=== PATIENT | female | born 2000 | race African-American/Black ===

== ENCOUNTER 2022-10-12 20:57 | Observation (INO) | payer MEDICAID ==
[~2022-10-12] VITALS: Ht 157.5 cm; Wt 121.1 kg
[2022-10-12] MEDS ORDERED: BISACODYL 10MG SUPP PR NR (22:45)
[2022-10-13] MEDS ORDERED: PREN1TAB78 PO (01:45)
== END 2022-10-13 02:00 | disposition home or self-care (01) ==
LOC: 8 EST LDRP 20:57
PROVIDERS: ADMIT Obstetrics & Gynecology; ATTEND Obstetrics & Gynecology
DX: O62.9 Abnormality of forces of labor, unspecified (principal); O26.893 Other specified pregnancy related conditions, third trimester; K59.00 Constipation, unspecified; R10.9 Unspecified abdominal pain; Z3A.38 38 weeks gestation of pregnancy
CPT/HCPCS: 59025; 99281; G0378

== ENCOUNTER 2022-10-29 08:36 | Emergency (ER) | payer MEDICAID ==
[~2022-10-29] VITALS: Ht 157.5 cm; Wt 121.0 kg
[~2022-10-29 08:36] MED LIST: PREN1TAB78 PO
[2022-10-29 08:43] VITALS: BP 132/84
[2022-10-29] MEDS ORDERED: ACETAMINOPHEN 325MG TABLET PO ONE (09:30)
[2022-10-29] MEDS ORDERED: TOPUD MT (11:27)
== END 2022-10-29 11:56 | disposition home or self-care (01) ==
LOC: ER 08:36
DX: O98.513 Other viral diseases complicating pregnancy, third trimester (principal); Z20.822 Contact with and (suspected) exposure to COVID-19; Z3A.39 39 weeks gestation of pregnancy
CPT/HCPCS: 87070; 87426; 87430; 87804; 99283; C9803

== ENCOUNTER 2022-10-31 05:22 | Inpatient (IN) | payer MEDICAID ==
[~2022-10-31] VITALS: Ht 165.1 cm; Wt 121.1 kg
[~2022-10-31 05:22] MED LIST changes: +TOPUD MT
[2022-10-31] MEDS ORDERED: NALOXONE HCL 0.4 MG/ML 1ML VIAL IM PRN (06:15)
[2022-10-31] MEDS ORDERED: MISOPROSTOL 100MCG TABLET VG SCH (06:15)
[2022-10-31] MEDS ORDERED: CARBOPROST TROMETHAMINE 250 MCG/ML AMPUL IM PRN (06:15)
[2022-10-31] MEDS ORDERED: OXYTOCIN 30 UNITS/500ML NS PMX 500 ML IV SCH (06:15)
[2022-10-31] MEDS ORDERED: BUTORPHANOL TARTRATE 2 MG/ML VIAL IV PRN (06:15)
[2022-10-31] MEDS ORDERED: METHYLERGONOVINE MALEATE 0.2 MG/ML IM PRN (06:15)
[2022-10-31] MEDS ORDERED: LIDOCAINE HCL 1% 20ML VIAL (Pyxis) INJ INFIL SCH (06:15)
[2022-10-31 06:47] LABS: BASOPHILS % 0.4 % (0.0-2.0); HEMATOCRIT. 35.1 % (36.0-48.0); HEMOGLOBIN. 11.1 g/dL (12.0-16.0); LYMPHOCYTES % 23.4 % (20.0-50.0); MEAN CORPUSCULAR VOLUME 78.9 fL (81.0-99.0); MEAN PLATELET VOLUME 8.6 fl (7.4-10.4); MONOCYTES % 12.9 % (2.0-8.0); NEUTROPHILS % 60.3 % (40.0-76.0); PLATELET 172 x1000/uL (130-400); RED BLOOD CELL COUNT 4.46 mill/uL (4.2-5.4)
[2022-10-31] MEDS ORDERED: PENICILLIN G POTASSIUM 5 MMU in DEXT 5% WATER 100 ML IV SCH (07:30)
[2022-10-31] MEDS: MISOPROSTOL 100MCG TABLET VG PRN ×3 (07:59→16:34)
[2022-10-31] MEDS: LACTATED RINGERS 1,000 ML IV SCH (08:00)
[2022-10-31 09:47] LABS: INR 0.9; PROTHROMBIN TIME 9.7 sec (9.6-11.0)
[2022-10-31 10:31] LABS: CLARITY URINE CLEAR (CLEAR); COLOR URINE DARK YELLOW (YELLOW); KETONES URINE TRACE (NEGATIVE); LEUKOCYTE ESTERASE URINE NEGATIVE (NEGATIVE); NITRITE URINE NEGATIVE (NEGATIVE); OCCULT BLOOD URINE NEGATIVE (NEGATIVE); PROTEIN URINE 1+ (NEGATIVE); SPECIFIC GRAVITY URINE 1.033 (1.005-1.030)
[2022-10-31 11:59] LABS: *AMPHETAMINES SCREEN URINE NEGATIVE (NEGATIVE); *BARBITURATES SCREEN URINE NEGATIVE (NEGATIVE); *BENZODIAZEPINES SCREEN URINE NEGATIVE (NEGATIVE); *COCAINE SCREEN URINE NEGATIVE (NEGATIVE); CANNABINOID URINE SCREEN NEGATIVE (NEGATIVE); METHADONE URINE SCREEN NEGATIVE (NEGATIVE); OPIATES URINE SCREEN NEGATIVE (NEGATIVE); PHENCYCLIDINE URINE SCREEN NEGATIVE (NEGATIVE)
[2022-10-31] MEDS ORDERED: PENICILLIN G POTASSIUM 2.5 MMU in DEXTROSE 5% WATER 50 ML IV SCH (12:00)
[2022-10-31] MEDS ORDERED: LANOLIN OINT 7GM TUBE TOP PRN (17:09)
[2022-10-31 17:48] LABS: HEPATITIS B SURFACE ANTIGEN NEGATIVE
[2022-10-31] MEDS: OXYTOCIN 30 UNITS/500ML NS PMX 500 ML IV SCH (20:42)
[2022-10-31] MEDS ORDERED: MINERAL OIL 30ML BOTTLE TOP NR (21:30)
[2022-10-31] MEDS ORDERED: ROPIVACAINE HCL/PF EPIDURAL 200 ML EPI SCH (21:45)
[2022-10-31 22:36] LABS: CHLORIDE 110 mEq/L (98-107)
[2022-10-31] MEDS ORDERED: ROPIVACAINE HCL/PF EPIDURAL 200 ML EPI ONE (22:53)
[2022-10-31] MEDS ORDERED: FENTANYL CITRATE/PF 50MCG/ML 2ML VIAL ONE (22:54)
[2022-10-31] MEDS ORDERED: MORPHINE SULFATE/PF 1MG/ML 10ML AMP ONE (23:56)
[2022-10-31] MEDS ORDERED: OXYTOCIN 10 UNITS/ML 1ML ONE (23:56)
[2022-10-31] MEDS ORDERED: CEFAZOLIN SODIUM 1000MG/VIAL ONE (23:56)
[2022-11-01] MEDS ORDERED: DIPHENHYDRAMINE 50MG/ML VIAL ONE (00:18)
[2022-11-01] MEDS ORDERED: KETOROLAC 60MG/2ML VIAL IM ONE (00:28)
[2022-11-01] MEDS ORDERED: BUTORPHANOL TARTRATE 2 MG/ML VIAL IV PRN (00:45)
[2022-11-01] MEDS ORDERED: DIPHENHYDRAMINE 50MG/ML VIAL IV PRN (00:45)
[2022-11-01] MEDS ORDERED: HYDROCODONE/ACETAMINOPHEN 5/325MG TABLET PO PRN (02:00)
[2022-11-01] MEDS ORDERED: OXYTOCIN 30 UNITS/500ML NS PMX 500 ML IV SCH (02:00)
[2022-11-01] MEDS ORDERED: LANOLIN OINT 7GM TUBE TOP PRN (02:00)
[2022-11-01] MEDS ORDERED: RHO(D) IMMUNE GLOBULIN 300 MCG/SYR IM PRN (02:00)
[2022-11-01] MEDS ORDERED: ONDANSETRON HCL 4MG/2ML INJ IV PRN (02:00)
[2022-11-01 04:00] VITALS: BP 107/65
[2022-11-01] MEDS: OXYTOCIN 30 UNITS/500ML NS PMX 500 ML IV SCH (05:04)
[2022-11-01 05:15] VITALS: BP 110/59
[2022-11-01] MEDS: KETOROLAC 30MG/ML VIAL IV SCH ×3 (07:24→17:32)
[2022-11-01 08:00] VITALS: BP_SYST 115; BP_DIAS 6; BP_DIAS 62
[2022-11-01 16:00] VITALS: BP 108/60
[2022-11-01] MEDS: LACTATED RINGERS 1,000 ML IV SCH (17:33)
[2022-11-01 20:00] VITALS: BP 104/59
[2022-11-01] MEDS: HYDROCODONE/ACETAMINOPHEN 5/325MG TABLET PO PRN (21:47)
[2022-11-01] MEDS: DOCUSATE SODIUM 100MG CAPSULE PO SCH (21:47)
[2022-11-02 04:30] VITALS: BP 112/60
[2022-11-02] MEDS: HYDROCODONE/ACETAMINOPHEN 5/325MG TABLET PO PRN ×2 (05:29→12:35)
[2022-11-02 08:00] VITALS: BP 123/86
[2022-11-02] MEDS: IBUPROFEN 400MG TABLET PO PRN ×2 (08:57→17:03)
[2022-11-02] MEDS: PRENATAL VIT/FE FUMARATE/FA TABLET PO SCH ×2 (08:57→09:00)
[2022-11-02 12:16] LABS: BASOPHILS % 0.2 % (0.0-2.0); EOSINOPHILS % 0.1 % (0.0-5.0); HEMOGLOBIN. 10.2 g/dL (12.0-16.0); LYMPHOCYTES % 8.4 % (20.0-50.0); MEAN CORPUSCULAR HEMOGLOBIN 24.5 pg (28.0-32.0); MEAN CORPUSCULAR VOLUME 79.3 fL (81.0-99.0); MEAN PLATELET VOLUME 8.5 fl (7.4-10.4); NEUTROPHILS % 83.3 % (40.0-76.0); PLATELET 198 x1000/uL (130-400); RED BLOOD CELL COUNT 4.16 mill/uL (4.2-5.4); RED CELL DISTRIBUTION WIDTH 16.2 % (11.6-14.6)
[2022-11-02] MEDS ORDERED: BISACODYL 10MG SUPP PR PRN (15:15)
[2022-11-02 16:00] VITALS: BP 142/77
[2022-11-02] MEDS ORDERED: SIMETHICONE 80MG TABLET CHEW PO PRN (16:15)
[2022-11-02] MEDS ORDERED: NALOXONE HCL 0.4MG/ML VIAL IV PRN (16:30)
[2022-11-02 19:30] VITALS: BP 116/69
[2022-11-02] MEDS: IBUPROFEN 800MG TABLET PO PRN (21:54)
[2022-11-02] MEDS: DOCUSATE SODIUM 100MG CAPSULE PO SCH (21:54)
[2022-11-02] MEDS: SIMETHICONE 80MG TABLET CHEW PO PRN (21:54)
[2022-11-03] MEDS: SIMETHICONE 80MG TABLET CHEW PO PRN ×3 (03:19→20:15)
[2022-11-03] MEDS: IBUPROFEN 800MG TABLET PO PRN ×3 (03:19→20:15)
[2022-11-03 03:30] VITALS: BP 144/82
[2022-11-03 08:00] VITALS: BP 124/68
[2022-11-03 16:00] VITALS: BP 118/81
[2022-11-03 20:00] VITALS: BP 110/50
[2022-11-03] MEDS: DOCUSATE SODIUM 100MG CAPSULE PO SCH (20:15)
[2022-11-04 04:12] VITALS: BP 112/52
[2022-11-04] MEDS: IBUPROFEN 800MG TABLET PO PRN ×2 (06:17→13:11)
[2022-11-04 08:45] VITALS: BP 119/80
== END 2022-11-04 16:00 | disposition home or self-care (01) | DRG 560 ==
LOC: OBSVTOIN 05:22 → 8 EST LDRP 05:22 → 8EST 11-01 05:47
PROVIDERS: ADMIT Obstetrics & Gynecology; ATTEND Obstetrics & Gynecology
PROC: 10E0XZZ Delivery of Products of Conception, External Approach (ICD-10-PCS; principal; 2022-11-01)
PROC: 3E0R3BZ Introduction of Anesthetic Agent into Spinal Canal, Percutaneous Approach (ICD-10-PCS; 2022-11-01)
PROC: 00HU33Z Insertion of Infusion Device into Spinal Canal, Percutaneous Approach (ICD-10-PCS; 2022-11-01)
DX: O76 Abnormality in fetal heart rate and rhythm complicating labor and delivery (principal); Z37.0 Single live birth; D62 Acute posthemorrhagic anemia; O77.0 Labor and delivery complicated by meconium in amniotic fluid; O99.02 Anemia complicating childbirth; O99.214 Obesity complicating childbirth; Z3A.39 39 weeks gestation of pregnancy; Z20.822 Contact with and (suspected) exposure to COVID-19
CPT/HCPCS: 36415; 76805; 76818; 80053; 80305; 81003; 85025; 86592; 86703; 86762; 86850; 86900; 87340; 87426; 88307; 99281; J0595; J0690; J1200; J1885; J2274; J2405; J2540; J2795; J3010; J7060; J7120; A4315; J2590